=== PATIENT | male | born 1940 | race Caucasian/White ===

== ENCOUNTER 2016-12-04 14:13 | Outpatient (CLI) | payer MEDICARE, OTHER | END 2016-12-04 14:14 | disposition home or self-care (01) | DX: R60.0 Localized edema (principal); M25.461 Effusion, right knee ==

== ENCOUNTER 2016-12-04 17:41 | Outpatient (CLI) | payer MEDICARE, OTHER | END 2016-12-04 17:42 | disposition home or self-care (01) | DX: R60.0 Localized edema (principal); M25.461 Effusion, right knee ==

== ENCOUNTER 2016-12-12 07:28 | Outpatient (CLI) | payer MEDICARE, OTHER ==
[2016-12-12] MEDS ORDERED: IOPAMIDOL-300 100 ML VIAL IVP ONE (08:38)
== END 2016-12-12 07:29 | disposition home or self-care (01) ==
DX: N28.1 Cyst of kidney, acquired (principal); C06.9 Malignant neoplasm of mouth, unspecified; K57.90 Diverticulosis of intestine, part unspecified, without perforation or abscess without bleeding; K40.90 Unilateral inguinal hernia, without obstruction or gangrene, not specified as recurrent; M89.8X9 Other specified disorders of bone, unspecified site
CPT/HCPCS: 74177; Q9967

== ENCOUNTER 2017-08-18 08:00 | Outpatient (CLI) | payer MEDICARE, OTHER ==
[2017-08-18 19:22] LABS: BILIRUBIN,URINE NEGATIVE (NEGATIVE)
[2017-08-18 19:25] LABS: UA CHARGE (STRIP ONLY) YES; UR CULTURE IF IND NOT INDICATED
[2017-08-18 19:30] LABS: BASOPHILS # (AUTO) 0.1 10^3/uL (0.0-0.1); BASOPHILS % (AUTO) 1.1 %; EOSINOPHILS % (AUTO) 0.8 %; HCT - HEMATOCRIT 43.9 % (42.0-52.0); HGB - HEMOGLOBIN 14.7 g/dL (14.0-18.0); LYMPHOCYTES # (AUTO) 1.2 10^3/uL (1.5-3.5); LYMPHOCYTES % (AUTO) 21.5 %; MEAN CORPUSCULAR HEMOGLOBIN 31.8 pg (27.0-31.0); MEAN CORPUSCULAR HGB CONC 33.4 g/dL (32.0-36.0); MEAN CORPUSCULAR VOLUME 95.1 fL (80.0-94.0); MEAN PLATELET VOLUME 8.7 fL (7.4-11.4); MONOCYTES # (AUTO) 0.6 10^3/uL (0.0-1.0); MONOCYTES % (AUTO) 10.8 %; NEUTROPHILS # (AUTO) 3.8 10^3/uL (1.5-6.6); NEUTROPHILS % (AUTO) 65.8 %; RED BLOOD COUNT 4.62 10^6/uL (4.70-6.10); RED CELL DISTRIBUTION WIDTH 13.7 % (12.0-15.0); UNCORRECTED WHITE BLOOD COUNT 5.8 x10^3/uL; WHITE BLOOD COUNT 5.8 x10^3/uL (4.8-10.8)
[2017-08-18 19:41] LABS: HEMOGLOBIN A1C 0.62 g/dL
[2017-08-18 19:48] LABS: ALBUMIN/GLOBULIN RATIO 1.5 (1.0-2.2); BILIRUBIN,TOTAL 1.1 mg/dL (0.2-1.0); BUN - BLOOD UREA NITROGEN 10 mg/dL (6-20); CALCIUM 9.5 mg/dL (8.5-10.3); CARBON DIOXIDE - CO2 27 mmol/L (21-32); CHLORIDE 98 mmol/L (101-111); CHOL/HDL RATIO 2.5 (<5.0); CHOLESTEROL 203 mg/dL; CREATININE 0.9 mg/dL (0.6-1.2); GFR - MDRD 81 (>89); GLUCOSE 103 mg/dL (70-100); HDL CHOLESTEROL 81 mg/dL; LDL/HDL RATIO 1.4 (<3.6); POTASSIUM 4.5 mmol/L (3.5-5.0); SODIUM 132 mmol/L (135-145); TOTAL PROTEIN 7.7 g/dL (6.7-8.2); TRIGLYCERIDES 56 mg/dL; VLDL CHOLESTEROL 11 mg/dL
== END 2017-08-18 08:01 | disposition home or self-care (01) ==
LOC: LAB.WCP 08:00
PROVIDERS: ATTEND Family Medicine
DX: Z01.818 Encounter for other preprocedural examination (principal); I10 Essential (primary) hypertension; M25.562 Pain in left knee; N39.0 Urinary tract infection, site not specified; R73.9 Hyperglycemia, unspecified; E78.5 Hyperlipidemia, unspecified; D64.9 Anemia, unspecified
CPT/HCPCS: 36415; 80053; 80061; 81001; 81003; 83036; 84466; 85025; 87086

== ENCOUNTER 2017-08-25 08:35 | Outpatient (CLI) | payer MEDICARE, OTHER ==
[2017-08-25 13:08] LABS: THYROID STIMULATING HORMONE 11.69 uIU/mL (0.34-5.60)
== END 2017-08-25 08:36 | disposition home or self-care (01) ==
LOC: LAB.WCP 08:35
PROVIDERS: ATTEND Family Medicine
DX: R94.6 Abnormal results of thyroid function studies (principal); M17.11 Unilateral primary osteoarthritis, right knee
CPT/HCPCS: 84439; 84443; 84481; 87640

== ENCOUNTER 2018-05-10 13:03 | Outpatient (CLI) | payer MEDICARE, OTHER ==
--- NOTE | 2018-05-10 13:38 | XRAY Report ---
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 TECHNIQUE: 4 views. FINDINGS: Soft tissue swelling along the right mandible identified by the patient is the area of concern is noted. Postsurgical changes are seen in the soft tissues of the neck bilaterally. Note is made of poor dentition with implants. There is no fracture or obvious osseous lytic lesion with the limitation that bones are osteopenic in appearance. IMPRESSION: Soft tissue swelling is identified in the area of concern. If the etiology is felt to be of soft tissue nature, recommend focal ultrasound. Otherwise, CT of the neck with IV contrast would be the definitive study. [facility]
[2018-05-10 13:49] LABS: BASOPHILS # (AUTO) 0.1 10^3/uL (0.0-0.1); EOSINOPHILS # (AUTO) 0.1 10^3/uL (0.0-0.7); EOSINOPHILS % (AUTO) 1.4 %; HGB - HEMOGLOBIN 13.2 g/dL (14.0-18.0); LYMPHOCYTES # (AUTO) 1.4 10^3/uL (1.5-3.5); LYMPHOCYTES % (AUTO) 21.3 %; MEAN CORPUSCULAR HEMOGLOBIN 31.3 pg (27.0-31.0); MEAN CORPUSCULAR VOLUME 92.1 fL (80.0-94.0); MEAN PLATELET VOLUME 7.5 fL (7.4-11.4); MONOCYTES # (AUTO) 0.8 10^3/uL (0.0-1.0); MONOCYTES % (AUTO) 11.6 %; NEUTROPHILS # (AUTO) 4.3 10^3/uL (1.5-6.6); NEUTROPHILS % (AUTO) 64.7 %; PLT - PLATELET COUNT 266 10^3/uL (130-450); RED BLOOD COUNT 4.22 10^6/uL (4.70-6.10); WHITE BLOOD COUNT 6.6 x10^3/uL (4.8-10.8)
[2018-05-10 14:53] LABS: CALCIUM 9.1 mg/dL (8.5-10.3)
== END 2018-05-10 13:04 | disposition home or self-care (01) ==
LOC: DI 13:03
PROVIDERS: ATTEND Family Medicine
DX: C06.9 Malignant neoplasm of mouth, unspecified (principal); R22.0 Localized swelling, mass and lump, head
CPT/HCPCS: 36415; 70110; 80048; 85025

== ENCOUNTER 2018-05-14 08:22 | Outpatient (CLI) | payer MEDICARE, OTHER ==
[2018-05-14] MEDS ORDERED: GADOBUTROL 7.5 MMOL/7.5 ML VIAL ONE (08:29)
[2018-05-14] MEDS ORDERED: GADOBUTROL 7.5 MMOL/7.5 ML VIAL IVP ONE (09:15)
[2018-05-14] MEDS ORDERED: IOPAMIDOL-300 100 ML VIAL IVP ONE (10:08)
--- NOTE | 2018-05-16 10:06 | MRI Report ---
Procedure Date: 05/14/2018 Accession Number: [id number] / [id number] Procedure: MRI - Facial W/WO CPT Code: FULL RESULT: EXAM: MRI SOFT TISSUE NECK WITHOUT AND WITH CONTRAST EXAM DATE: 05/14/2018 09:35 AM. 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 COMPARISON: MANDIBLE BILAT 05/10/2018. TECHNIQUE: Multiplanar, multisequence T1-weighted and fluid-sensitive MR sequences of the soft tissues of the neck per institution routine MRI protocol were performed. Sequences optimized for routine evaluation. Other: None. IV Contrast: Without and with 7.5 mL Gadavist. FINDINGS: Abnormal signal and morphology of the anterior aspect of the tongue. Volume loss is present as well as heterogeneous signal abnormality but with a component of non-physiologic fat signal in the region of the anterior tongue extending to the floor the mouth posterior to the anterior aspect of the mandible. These findings are most consistent with postoperative change potentially for treatment oral cavity or floor of mouth tumor. Detailed anatomic evaluation is limited by susceptibility artifact from regional surgical changes including surgical clips. As far as can be determined, a clearly defined space-occupying enhancing tumor mass is not identified but could be obscured by imaging artifact. No other evidence for acute abnormality or enhancing asymmetric space-occupying mass of the oral cavity, pharynx or larynx. No focal enhancing mass of the parotid spaces. Normal submandibular glands are not identified, atrophic or surgically absent. No evidence for a thyroid mass. No evidence for pathologically enlarged cervical lymph node or other soft tissue mass. Moderately prominent chronic multilevel degenerative cervical spinal spondylosis, most notable at C3-C4, C4-C5, C5-C6 and C6-C7. No focal prevertebral soft tissue edema. IMPRESSION: 1. Extensive postoperative changes in the region of the oral cavity/floor of mouth, particularly in the region of the anterior tongue. Allowing for susceptibility artifact, no clear evidence for a focal space-occupying enhancing tumor mass but sensitivity is reduced by susceptibility artifact from surgical clip changes including multiple vascular clips. 2. No other evidence for neck mass or adenopathy. 3. Prominent chronic multilevel degenerative cervical spinal spondylosis. [facility]
== END 2018-05-14 08:23 | disposition home or self-care (01) ==
LOC: DI 08:22
PROVIDERS: ATTEND Family Medicine
DX: C06.9 Malignant neoplasm of mouth, unspecified (principal); M47.812 Spondylosis without myelopathy or radiculopathy, cervical region
CPT/HCPCS: 70543; A9585; Q9967

== ENCOUNTER 2018-05-14 10:00 | Outpatient (CLI) | payer MEDICARE, OTHER ==
[~2018-05-14 10:00] MED LIST: IOPAMIDOL-300 100 ML VIAL IVP ONE; IOPAMIDOL-300 100 ML VIAL ONE
--- NOTE | 2018-05-16 10:41 | CT Report ---
Procedure Date: 05/14/2018 Accession Number: [id number] / [id number] Procedure: CT - Neck Soft Tissue W/ CPT Code: FULL RESULT: EXAM: CT SOFT TISSUE NECK WITH CONTRAST. EXAM DATE: 05/14/2018 10:06 AM. HISTORY: Malignant neoplasm of mouth. COMPARISONS: None. TECHNIQUE: Routine soft tissue neck CT protocol. Reconstructions: Coronal and sagittal. IV contrast: 80 mL Isovue 300. In accordance with CT protocol optimization, one or more of the following dose reduction techniques were utilized for this exam: automated exposure control, adjustment of mA and/or KV based on patient size, or use of iterative reconstructive technique. FINDINGS: Extensive surgical changes in the upper neck and in the oral cavity and floor of mouth. The anterior aspect of the tongue appears to be surgically absent, there is fat density in its place which may be from flap reconstruction. There are numerous vascular clips in this region. The submandibular glands appear to be surgically absent. No clear CT evidence for focal enhancing or space-occupying residual or recurrent mass or cervical adenopathy. No acute abnormality or focal lesion of the parotid glands or thyroid. More prominent parotid fatty atrophy posteriorly on the right than on the left. Amorphous increased attenuation at the tongue base and base of epiglottis may be incidental postoperative or radiation changes. Prominent chronic multilevel degenerative cervical spine spondylosis. No acute apical pulmonary parenchymal pathology. No acute sinus or mastoid disease. Previous lens extractions. Generalized cerebral volume loss without evidence for focal intracranial lesion. Patent internal jugular veins. 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 IMPRESSION: Extensive surgical changes in the upper anterior neck and oral cavity/floor of mouth without clear evidence for recurrent enhancing tumor mass or regional adenopathy. There is some diagnostic uncertainty given extensive surgical changes, this study may serve as baseline for additional imaging follow-up as clinically warranted. [facility]
[2018-05-17] MEDS ORDERED: IOPAMIDOL-300 100 ML VIAL IVP ONE (08:22)
== END 2018-05-14 23:59 | disposition home or self-care (01) ==
LOC: DI 10:00
PROVIDERS: ATTEND Family Medicine
DX: C06.9 Malignant neoplasm of mouth, unspecified (principal)
CPT/HCPCS: 70491; Q9967